=== PATIENT | female | born 1990 | race American Indian/Alaskan Native ===

== ENCOUNTER 2019-08-30 08:00 | Emergency (ER) | payer SELFPAY ==
[2019-08-30 08:07] VITALS: BP 121/64
--- NOTE | 2019-08-30 08:35 | Emergency Department Report ---
Chief Complaint: Urogenital-Female Stated Complaint: VAGINAL IRRITATION - HPI History of Present Illness: 29-year-old -[place] female presents to the emergency room complaint of vaginal irritation 2 days. Patient reports vaginal discharge. She denies any abdominal pain pelvic pain no dysuria. She denies any fever chills no nausea no vomiting. She admits to discharged thick white that does not itch. Patient states that she is 1 para 1 last menstrual period was 08/15/2019. Patient reports she went to a [place] last week for gonorrhea and chlamydia tests are pending. Patient does admit to unprotected intercourse. She is not sure she's been exposed to STDs. - Exam Vital Signs: Vital Signs 08/30/19 08:05 Temperature 97.8 F Pulse Rate 73 Respiratory 14 Rate Blood Pressure 121/64 O2 Sat by Pulse 98 Oximetry Physical Exam: Alert and oriented no acute distress nontoxic in appearance. Vital signs are within normal limits she is afebrile. MSE screening note: Focused history and physical exam performed. Due to findings the following was ordered: Discussed the patient this does not consider life-threatening emergency medical concerns for . Discussed the patient she can follow-up one of the [facility] handout was given to her for community resources. Patient discussed with doctor:: [facility] ED Disposition for MSE Disposition: - MED SCREENING EXAM-LEFT Condition: Stable Referrals: PRIMARY CARE, [Primary Care Provider] - 3-5 Days
== END 2019-08-30 08:26 | disposition left against medical advice (07) ==
LOC: ED 08:00
DX: N89.8 Other specified noninflammatory disorders of vagina (principal); Z53.21 Procedure and treatment not carried out due to patient leaving prior to being seen by health care provider